=== PATIENT | male | born 1980 | race Two or more races ===

== ENCOUNTER 2018-10-21 15:33 | Emergency (ER) | payer MEDICAID, OTHER ==
[~2018-10-21] VITALS: Ht 167.6 cm; Wt 99.8 kg
[2018-10-21 16:47] VITALS: BP 133/88
[2018-10-21] MEDS ORDERED: KETOROLAC TROMETH 60MG/2ML VIAL IM ONE (17:30)
== END 2018-10-21 18:08 | disposition home or self-care (01) ==
LOC: ER 15:41
DX: M43.6 Torticollis (principal); M47.892 Other spondylosis, cervical region; M43.22 Fusion of spine, cervical region; E11.9 Type 2 diabetes mellitus without complications
CPT/HCPCS: 72040; 96372; 99283; J1885

== ENCOUNTER 2020-11-04 12:41 | Emergency (ER) | payer MEDICAID ==
[~2020-11-04] VITALS: Ht 152.4 cm; Wt 90.7 kg
[2020-11-04 13:06] VITALS: BP 152/100
[2020-11-04] MEDS ORDERED: KETOROLAC TROMETH 30 MG/ML 1ML VIAL IV ONE (14:15)
== END 2020-11-04 14:27 | disposition home or self-care (01) ==
LOC: EDBD 12:41 → ER 12:41
DX: S00.03XA Contusion of scalp, initial encounter (principal); E11.9 Type 2 diabetes mellitus without complications; V43.52XA Car driver injured in collision with other type car in traffic accident, initial encounter; Y93.89 Activity, other specified; Y92.488 Other paved roadways as the place of occurrence of the external cause; Y99.8 Other external cause status
CPT/HCPCS: 70450; 72125; 96374; 99285; J1885

== ENCOUNTER 2021-02-21 17:39 | Emergency (ER) | payer MEDICAID ==
[~2021-02-21] VITALS: Ht 167.6 cm; Wt 99.8 kg
[2021-02-21 17:50] VITALS: BP 135/93
[2021-02-21 20:25] LABS: Urine Bacteria NONE SEEN /hpf (None Seen); Urine Blood TRACE /uL (Negative); Urine Specific Gravity 1.028 (1.001-1.035); Urine WBC 14 /hpf (0 - 3); Urine WBC Clumps PRESENT /hpf (None Seen)
[2021-02-21] MEDS ORDERED: KETOROLAC TROMETH 60MG/2ML VIAL IM ONE (20:30)
[2021-02-21] MEDS ORDERED: BACLOFEN 10 MG TAB PO ONE (20:30)
== END 2021-02-21 21:44 | disposition home or self-care (01) ==
LOC: ER 17:39
DX: S23.41XA Sprain of ribs, initial encounter (principal); N39.0 Urinary tract infection, site not specified; J84.10 Pulmonary fibrosis, unspecified; E11.9 Type 2 diabetes mellitus without complications; X58.XXXA Exposure to other specified factors, initial encounter; Y93.89 Activity, other specified; Y92.89 Other specified places as the place of occurrence of the external cause; Y99.8 Other external cause status
CPT/HCPCS: 71101; 72100; 81001; 82962; 96372; 99284; J1885

== ENCOUNTER 2021-03-09 17:00 | Emergency (ER) | payer MEDICAID ==
[~2021-03-09] VITALS: Ht 167.6 cm; Wt 104.3 kg
[2021-03-09 17:09] VITALS: BP 142/85
== END 2021-03-09 19:49 | disposition left against medical advice (07) ==
LOC: ER 17:00
DX: M54.9 Dorsalgia, unspecified (principal); Z53.21 Procedure and treatment not carried out due to patient leaving prior to being seen by health care provider

== ENCOUNTER 2021-03-23 22:33 | Emergency (ER) | payer MEDICAID ==
[2021-03-24] MEDS ORDERED: KETOROLAC TROMETH 60MG/2ML VIAL IM ONE (05:45)
[2021-03-24 07:00] VITALS: BP 157/86
== END 2021-03-24 07:08 | disposition home or self-care (01) ==
LOC: ER 22:33
DX: R07.81 Pleurodynia (principal); E11.9 Type 2 diabetes mellitus without complications
CPT/HCPCS: 71250; 96372; 99284; J1885

== ENCOUNTER 2022-10-12 15:48 | Emergency (ER) | payer MEDICAID ==
[~2022-10-12] VITALS: Ht 167.6 cm; Wt 99.1 kg
[~2022-10-12 15:48] MED LIST changes: -CEPH250C28 PO; -CLIN1PAD EXT; -IBUP800T27 PO; -cefTRIAXone SOD 1,000 MG VL IM ONE
[2022-10-12] MEDS ORDERED: CLIN1PAD EXT (16:57)
[2022-10-12] MEDS ORDERED: IBUP800T27 PO (16:57)
[2022-10-12] MEDS ORDERED: CEPH250C28 PO (16:57)
[2022-10-12 17:14] VITALS: BP 137/74
== END 2022-10-12 17:15 | disposition home or self-care (01) ==
LOC: ER 15:48
DX: L02.01 Cutaneous abscess of face (principal); E11.9 Type 2 diabetes mellitus without complications; Z88.6 Allergy status to analgesic agent

== ENCOUNTER → 2022-10-12 | Emergency (ER) | payer MEDICAID ==
[~2022-10-12] VITALS: Ht 167.6 cm; Wt 100.0 kg
[~2022-10-12] MED LIST: CEPH-510 PO; CEPH250C28 PO; CLIN1PAD EXT; IBUP800T26 PO; IBUP800T27 PO; cefTRIAXone SOD 1,000 MG VL IM ONE
[2022-10-12 00:40] VITALS: BP 129/96
== END | disposition left against medical advice (07) ==
LOC: ER 00:08
DX: L02.01 Cutaneous abscess of face (principal); E11.9 Type 2 diabetes mellitus without complications
CPT/HCPCS: J0696

== ENCOUNTER 2023-01-24 19:07 | Emergency (ER) | payer MEDICAID ==
[~2023-01-24] VITALS: Ht 167.6 cm; Wt 103.1 kg
[~2023-01-24 19:07] MED LIST changes: +CEPH250C2 PO; +CLIN1PAD EXT; +IBUP-1455 PO; +IBUP-1456 PO; -IBUP800T26 PO
[2023-01-24 20:30] VITALS: BP 148/97
[2023-01-24] MEDS ORDERED: SULFAMETHOX W/TRIMETH(800/160MG) DS TAB PO ONE (20:45)
[2023-01-24] MEDS ORDERED: CLINDAMYCIN HCL 150 MG CAP PO ONE ×2 (20:45)
[2023-01-24] MEDS ORDERED: CLINDAMYCIN 900MG IV 50 ML IV ONE (20:45)
[2023-01-24] MEDS ORDERED: cefTRIAXone W LIDOCAINE 1 GM IM IM ONE (20:45)
[2023-01-24] MEDS ORDERED: CLIN300C70 PO (20:54)
[2023-01-24] MEDS ORDERED: IBU600T PO (20:54)
[2023-01-24] MEDS ORDERED: BACDST PO (20:54)
== END 2023-01-24 21:04 | disposition home or self-care (01) ==
LOC: ER 19:07
DX: L02.11 Cutaneous abscess of neck (principal); E11.9 Type 2 diabetes mellitus without complications; Z88.1 Allergy status to other antibiotic agents; Z88.6 Allergy status to analgesic agent
CPT/HCPCS: J0696

== ENCOUNTER 2023-05-31 10:52 | Emergency (ER) | payer MEDICAID ==
[~2023-05-31] VITALS: Ht 167.6 cm; Wt 107.3 kg
[~2023-05-31 10:52] MED LIST changes: +BACDST PO; +CLIN300C70 PO; +IBU600T PO
[2023-05-31 11:19] VITALS: BP 152/88; PULSE 98; RESP 16; TEMP 97.4; O2SAT 99
[2023-05-31] MEDS ORDERED: cefTRIAXone SOD 1,000 MG VL IM ONE (11:30)
[2023-05-31] MEDS ORDERED: CEPH500C PO (11:34)
[2023-05-31] MEDS ORDERED: IBUP-1456 PO (11:34)
== END 2023-05-31 11:52 | disposition home or self-care (01) ==
LOC: ER 10:52
DX: L73.9 Follicular disorder, unspecified (principal); E11.9 Type 2 diabetes mellitus without complications; Z79.1 Long term (current) use of non-steroidal anti-inflammatories (NSAID); Z79.899 Other long term (current) drug therapy
CPT/HCPCS: 96372; 99283; J0696

== ENCOUNTER 2024-02-19 00:52 | Emergency (ER) | payer MEDICAID ==
[~2024-02-19] VITALS: Ht 167.6 cm; Wt 104.3 kg
[~2024-02-19 00:52] MED LIST changes: +CEPH500C PO; +CLIN1CAP70 PO; -CLIN300C70 PO
[2024-02-19 01:07] VITALS: BP 108/62; PULSE 83; RESP 12; O2SAT 98
[2024-02-19] MEDS: TETRACAINE HCL 0.5% OPTH(EYE) SOLN 4ML EACHEYE ONE (04:19)
== END 2024-02-19 04:52 | disposition home or self-care (01) ==
LOC: ER 00:52
DX: H57.13 Ocular pain, bilateral (principal); R51.9 Headache, unspecified; E11.9 Type 2 diabetes mellitus without complications; E78.5 Hyperlipidemia, unspecified; I10 Essential (primary) hypertension
CPT/HCPCS: 70450; 70480

== ENCOUNTER 2024-12-15 17:30 | Emergency (ER) | payer SELFPAY, MEDICAID ==
[~2024-12-15] VITALS: Ht 167.6 cm; Wt 106.1 kg
--- NOTE | 2024-12-15 19:17 | ED.PDOC ---
History of Present Illness HPI Comments This is a 44-year-old male who comes in with chief complaint of bilateral leg swelling. The patient denies any nausea, vomiting or diarrhea. The patient states that he had a Whipple procedure done in October of this year. The surgery was done at [facility]. The patient states that he had to go back in the hospital approximately 1-1/2 months later to address an infection in his liver. The patient currently has a drain in the liver. He states that over the past couple of days his leg swelling has worsened. He was recently released from the hospital. The patient denies any chest pain or shortness for breath. There has been no nausea, vomiting or diarrhea. Chief Complaint: Extremity Swelling Time Seen by MD: 18:33 Primary Care Provider: BRADY Reviewed Notes: Nurses Notes, Medications, Allergies (No allergies to medications) Allergies: Coded Allergies: NO KNOWN ALLERGIES (Unverified , 10/21/18) Home Meds Active Scripts Ibuprofen (Ibuprofen) 800 Mg Tab, 1 TAB PO TID, #30 TAB Prov:SCOTT DAVID 05/31/23 Cephalexin Monohydrate (Cephalexin) 500 Mg Cap, 1 CAP PO QID, #32 CAP Prov:SCOTT DAVID PA 05/31/23 Ibuprofen Micronized (MOTRIN TABLET) 600 Mg Tb, 1 TAB PO TID PRN, #20 TAB as needed for pain with food Prov:TRUDI JOHNSON Q IT ASSISTANT 01/24/23 Sulfamethoxazole W/Trimethopri (Bactrim Ds Tablet) 1 Tab Tb, 1 TAB PO BID for 10 Days, #20 TAB Prov:TRUDI JOHNSON Q IT ASSISTANT 01/24/23 Clindamycin Hcl (Clindamycin Hcl) 300 Mg Cap, 1 CAP PO QID for 10 Days, #40 CAP Prov:VARGAS JOHNSONA Q IT ASSISTANT 01/24/23 Cephalexin Base (Cephalexin) 250 Mg Cap, 250 MG PO QID for 10 Days, #40 CAP Prov:JARED MORALES IT ASSISTANT 10/12/22 Ibuprofen (Ibuprofen) 800 Mg Tab, 1 TAB PO TID, #30 TAB Prov:JARED MORALES IT ASSISTANT 10/12/22 Clindamycin Phosphate (Topical (CLINDACIN-P) 1 % Pad, 1 % EXT DAILY for 14 Days, #14 PAD Prov:JARED MORALES IT ASSISTANT 10/12/22 Ibuprofen Micronized (Ibuprofen) 800 Mg Tab, 800 MG PO Q8HP PRN, #20 TAB Prov:PHYLICIA CORONA PAC 10/12/22 Cephalexin ( Keflex 500) 500 Mg Cap, 1 CAP PO QID for 7 Days, #28 CAP Prov:PHYLICIA CORONA PAC 10/12/22 Information Source: Patient, Relative Mode of Arrival: Ambulatory Severity: Moderate Timing: Days Duration: Since onset Prehospital treatment: None Associated signs and symptoms Bilateral leg swelling with generalized weakness Past Medical History PAST MEDICAL HISTORY: Cancer, DM, High Lipids, HTN Past Medical History (Other): Infected liver Surgical History (Other): Whipple procedure Family History Family History: Family hx of DM, Family hx of Cancer Social History Smoker: Non-Smoker Alcohol: Denies ETOH Use Drugs: Denies Drug Use Lives In: Home Constitutional: denies: chills, diaphoresis, fatigue, fever, malaise, sweats, weakness, others EENTM: denies: blurred vision, double vision, ear bleeding, ear discharge, ear drainage, ear pain, ear ringing, eye pain, eye redness, hearing loss, mouth pain, mouth swelling, nasal discharge, nose bleeding, nose congestion, nose pain, photophobia, tearing, throat pain, throat swelling, voice changes, others Respiratory: denies: cough, hemoptysis, orthopnea, SOB at rest, shortness of breath, SOB with excertion, stridor, wheezing, others Cardiovascular: denies: chest pain, dizzy spells, diaphoresis, Dyspnea on exertion, edema, irregular heart beat, left arm pain, lightheadedness, palpitations, PND, syncope, others Gastrointestinal: denies: abdomen distended, abdominal pain, blood streaked bowels, constipated, diarrhea, dysphagia, difficulty swallowing, hematemesis, melena, nausea, poor appetite, poor fluid intake, rectal bleeding, rectal pain, vomiting, others Genitourinary: reports: others (Drainage in place); denies: burning, dysuria, flank pain, frequency, hematuria, incontinence, penile discharge, penile sore, pain, testicle pain, testicle swelling, urgency Neurological: denies: dizziness, fainting, headache, left sided numbness, left sided weakness, numbness, paresthesia, pre-existing deficit, right sided numbness, right sided weakness, seizure, speech problems, tingling, tremors, weakness, others Musculoskeletal: reports: others (Bilateral leg swelling); denies: back pain, gout, joint pain, joint swelling, muscle pain, muscle stiffness, neck pain Integumetry: denies: bruises, change in color, change in hair/nails, dryness, laceration, lesions, lumps, rash, wounds, others Allergic/Immunocompromised: denies: Difficulty Healing, Frequent Infections, Hives, Itching, others Hematologic/Lymphatic: denies: anemia, blood clots, easy bleeding, easy bruising, swollen glands, others Endocrine: denies: excessive hunger, excessive sweating, excessive thirst, excessive urination, flushing, intolerance to cold, intolerance to heat, unexplained weight gain, unexplained weight loss, others Psychiatric: denies: anxiety, bipolar disorder, depression, hopeless, panic disorder, schizophrenia, sleepless, suicidal, others Physical Exam General Appearance: Moderate Distress HEENT: Pale [place]juntivae (L), Pale Conjuntivae (R), Pharynx Normal, TMs Normal Neck: Full Range of Motion, Non-Tender, Normal, Normal Inspection Respiratory: Chest Non-Tender, Lungs Clear, No Accessory Muscle Use, No Respiratory Distress, Normal Breath Sounds Cardiovascular: No Edema, No JVD, No Murmur, No Gallop, Normal Peripheral Pulses, Regular Rate/Rhythm Breast Exam: Deferred Gastrointestinal: No Pulsatile Mass, Normal Bowel Sounds, Soft, Tenderness, Other (Drain in place from previous procedure) Genitalia: Deferred Pelvic: Deferred Rectal: Deferred Extremities: No calf tenderness, Normal capillary refill, Pedal edema Musculoskeletal : Apperance: Normal Neurologic: Alert, ferris wheel attendant II-XII nml as Tested, Motor Weakness, Normal Affect, Normal Mood, No Sensory Deficits Cerebellar Function: Normal Reflexes: Normal Skin: Dry, Pallor, Warm Lymphatic: No Adenopathy Was a procedure done? Was a procedure done?: No Differential Dx Considerations may include: Abscess, CHF, pedal edema, electrolyte imbalance X-Ray, Labs, Meds, VS Vital Signs Date Time Temp Pulse Resp B/P (MAP) Pulse Ox O2 Delivery O2 Flow Rate FiO2 12/15/24 21:10 99.2 102 16 127/68 (87) 96 99.2 12/15/24 18:09 98.9 104 16 116/71 (86) 95 98.9 Lab Test 12/15/24 19:24 12/15/24 19:09 Range/Units Urine Color Yellow Yellow Urine Clarity Turbid H Clear Urine pH 5.5 5.0-9.0 Urine Specific [place] 1.026 1.001-1.035 Urine Protein 2+ H Negative Urine Ketones Negative Negative Urine Blood 1+ H Negative /uL Urine Nitrite Negative Negative Urine Bilirubin Negative Negative Urine Urobilinogen Normal Negative mg/dL Urine Leukocyte Esterase 3+ Negative /uL Urine RBC 15 0 - 3 /hpf Urine Microscopic WBC 73 H 0-3 /HPF Urine Squamous Epithelial Cells Mod <5 /hpf Urine Bacteria None seen None Seen /hpf Urine Hyaline Casts Few 0 - 2 /lpf Urine Granular Casts Few 0 /lpf Urine Mucus Few None Seen Urine Yeast (Budding) Occasional None Seen /hpf Urine Glucose Normal Normal mg/dL White Blood Count 8.1 4.4-10.8 10^3/uL Red Blood Count 2.72 L 4.5-5.90 10^6/uL Hemoglobin 7.7 L 13.5-17.5 g/dL Hematocrit 22.5 L 41.0-53.0 % Mean Corpuscular Volume 82.8 80.0-100.0 fL Mean Corpuscular Hemoglobin 28.4 28.0-32.0 pg Mean Corpuscular Hemoglobin Concent 34.3 32.0-36.0 g/dL Red Cell Distribution Width 16.5 H 11.8-14.3 % Platelet Count 678 H 140-450 10^3/uL Mean Platelet Volume 5.8 L 6.9-10.8 fL Neutrophils (%) (Auto) 57.3 37.0-80.0 % Lymphocytes (%) (Auto) 31.2 10.0-50.0 % Monocytes (%) (Auto) 8.1 0.0-12.0 % Eosinophils (%) (Auto) 2.2 0.0-7.0 % Basophils (%) (Auto) 1.2 0.0-2.0 % Neutrophils # (Auto) 4.6 1.6-8.6 10 ^3/uL Lymphocytes # (Auto) 2.5 0.4-5.4 10 ^3/uL Monocytes # (Auto) 0.7 0-1.3 10 ^3/uL Eosinophils # (Auto) 0.2 0-0.8 10 ^3/uL Basophils # (Auto) 0.1 0-0.2 10 ^3/uL Nucleated Red Blood Cells 0.0 % Sodium Level 136 136-145 mmol/L Potassium Level 3.5 3.5-5.1 mmol/L Chloride Level 106 98-107 mmol/L Carbon Dioxide Level 24 20-31 mmol/L Anion Gap 6 5-15 Blood Urea Nitrogen 10 9-23 mg/dL Creatinine 0.76 0.700-1.30 mg/dL Glomerular Filtration Rate Calc 114 >90 mL/min BUN/Creatinine Ratio 13.2 10.0-20.0 Serum Glucose 92 74-106 mg/dL Calcium Level 7.8 L 8.7-10.4 mg/dL B-Type Natriuretic Peptide 73.00 0-100 pg/mL IV Hep-Lock was established The patient's CBC came back and it shows a hemoglobin of 7.7 and hematocrit of 22.5 The urine test is positive for UTI The patient is being given Rocephin 1 g IV piggyback The chemistry panel is within normal limits We are typed and screen the patient and we will transfuse the patient with 1 unit of packed red blood cells. We are concerned that the patient may be bleeding after the Whipple's We are getting a CAT scan of the abdomen and pelvis with IV contrast to rule out any type of active bleed At this time, the patient will be signed out to Dr. Degroot Images Reviewed?: Images reviewed and evaluated by me Time of 1ST Reevaluation: 19:17 Reevaluation 1ST: Unchanged Patient Education/Counseling: Diagnosis, Treatment, Prognosis Family Education/Counseling: No Family Present Departure 1 Departure Time of Disposition: 22:01 Impression: Primary Impression: Severe anemia Additional Impressions: Pedal edema Status post surgery Disposition: 30 STILL A PATIENT Condition: Fair Critical Care Note Critical Care Time?: No Stability Stability form required: Yes Stable for transfer: Intended for transfer, To designated facility Heart Score Heart Score: Heart Score Response (Comments) Value History N/A 0 EKG N/A 0 Age N/A 0 Risk Factors N/A 0 Troponin N/A 0 Total 0 NATALIE NEWELL MD December 15, 2024 19:17
[2024-12-15 19:25] LABS: Basophils # (auto) 0.1 10 ^3/uL (0-0.2); Eosinophils # (auto) 0.2 10 ^3/uL (0-0.8); Hemoglobin 7.7 g/dL (13.5-17.5); Mean Corpuscular Volume 82.8 fL (80.0-100.0)
[2024-12-15 19:27] LABS: Anion Gap 6 (5-15); Basophils % (auto) 1.2 % (0.0-2.0); Carbon Dioxide 24 mmol/L (20-31); Chloride 106 mmol/L (98-107); Eosinophils % (auto) 2.2 % (0.0-7.0); Hematocrit 22.5 % (41.0-53.0); Lymphocytes # (auto) 2.5 10 ^3/uL (0.4-5.4); Lymphocytes % (auto) 31.2 % (10.0-50.0); Mean Corpuscular Hemoglobin 28.4 pg (28.0-32.0); Mean Corpuscular Hgb Conc. 34.3 g/dL (32.0-36.0); Monocytes # (auto) 0.7 10 ^3/uL (0-1.3); Monocytes % (auto) 8.1 % (0.0-12.0); Neutrophils # (auto) 4.6 10 ^3/uL (1.6-8.6); Neutrophils % (auto) 57.3 % (37.0-80.0); Platelet Count (auto) 678 10^3/uL (140-450); Potassium 3.5 mmol/L (3.5-5.1); Red Blood Cells 2.72 10^6/uL (4.5-5.90); Red Cell Distribution Width 16.5 % (11.8-14.3); White Blood Cell 8.1 10^3/uL (4.4-10.8)
[2024-12-15 19:33] LABS: BUN/Creatinine Ratio 13.2 (10.0-20.0); Blood Urea Nitrogen 10 mg/dL (9-23); Calcium 7.8 mg/dL (8.7-10.4); Glucose 92 mg/dL (74-106); Sodium 136 mmol/L (136-145)
--- NOTE | 2024-12-15 19:59 | DVH ---
XY CHEST TWO VIEWS ROUTINE CLINICAL HISTORY: sob COMPARISON: None TECHNIQUE: Frontal and lateral view of the chest was obtained FINDINGS: Lines and Tubes: None Lungs: Small right pleural effusion with atelectasis and airspace in the right base. Scarring or line ar atelectasis left base Pleura: No effusion. No pneumothorax. Cardiomediastinal contours: Unremarkable Bones: No acute osseous abnormality. IMPRESSION: 1. Airspace disease right lower lobe with a small pleural effusion and atelectasis. 2. Linear atelectasis or scarring left base
[2024-12-15 20:08] LABS: Urine Bacteria None Seen /hpf (None Seen); Urine Blood 1+ /uL (Negative); Urine Budding Yeast OCCASIONAL /hpf (None Seen); Urine Clarity Turbid (Clear); Urine Color Yellow (Yellow); Urine Hyaline Cast FEW /lpf (0 - 2); Urine Mucus FEW (None Seen); Urine Protein, UAD 2+ (Negative); Urine Specific Gravity 1.026 (1.001-1.035); Urine Squamous Epithelial Cell MOD /hpf (<5); Urine Urobilinogen Normal (Negative); Urine WBC 73 /HPF (0-3); Urine pH 5.5 (5.0-9.0)
[2024-12-15] MEDS ORDERED: cefTRIAXone 1GM/50ML D5W 50 ML IV ONE (20:30)
[2024-12-15 23:26] VITALS: BP 142/73; PULSE 102; RESP 16; TEMP 98.3; O2SAT 95
== END 2024-12-15 23:55 | disposition left against medical advice (07) ==
LOC: ER 17:30
DX: D64.9 Anemia, unspecified (principal); R60.0 Localized edema; E11.9 Type 2 diabetes mellitus without complications; I10 Essential (primary) hypertension; N39.0 Urinary tract infection, site not specified; K76.9 Liver disease, unspecified; E78.5 Hyperlipidemia, unspecified; Z79.1 Long term (current) use of non-steroidal anti-inflammatories (NSAID); Z90.49 Acquired absence of other specified parts of digestive tract; Z85.9 Personal history of malignant neoplasm, unspecified; Z98.890 Other specified postprocedural states
CPT/HCPCS: 36415; 71046; 80048; 81001; 83880; 85025; 86850; 86900; 86901; 86920

== ENCOUNTER 2025-01-06 17:40 | Emergency (ER) | payer MEDICAID, SELFPAY ==
[~2025-01-06] VITALS: Ht 167.6 cm; Wt 100.0 kg
--- NOTE | 2025-01-06 17:57 | ED.PDOC ---
General HPI Comments HPI Herbie 44 y.o male presents to the ED via EMS for a chief complaint of right flank pain x today. Patient reports recent kidney abscess IND procedure done with a JORGE A drain placed in, states he had a CT scan with IV contrast today and when he arrived home after, he started experiencing some pain in the surgical area on the right side. Patient initially had renal cancer with resection on October of 2024, a month later developed the kidney abscess and had an existing JORGE A drain. Patient reports drain is working and draining well with no bleeding, pus, or dislodgment noted. Patient also complains of nausea and chills that developed with the pain which is non radiating and constant. Patient is currently on antibiotics. Patine is currently on Amoxicillin, Levofloxacin and Dilaudid. Patient denies any allergies Vitals Temperature: 97.9 F Heart Rate: 99 Blood pressure: 162/95 SPO2: 97 RA RR:16 Past Medical History: HTN, DM, Renal cancer Past Surgical History: Kidney resection right side HPI: Poor Historian. REVIEW OF SYSTEMS: CONSTITUTIONAL: Denies acute: fever, diaphoresis, HEAD: Denies acute: headache, photophobia Eyes: Denies acute: Double vision, vision loss, eye pain, eye discharge. EARS: Denies acute: tinnitus, hearing loss, ear discharge, ear pain, THROAT: Denies acute: sore throat, swelling, difficulty swallowing , pain with swallowing, change in voice. NECK: Denies acute: neck pain, neck swelling, stiff neck. HEART: Denies acute : chest pain, palpitations, LUNGS: Denies acute: SOB, wheezing, cough, hemoptysis ABDOMEN: Denies acute: Vomiting, diarrhea, melena , hematemesis, hematochezia SKIN: Denies acute: rash, redness, lesions, itchiness. EXTREMITIES: Denies acute: calf pain, numbness, tingling, weakness, denies pain in extremity. Denies acute: Low back pain. Neuro: Denies acute: focal neurological deficit, motor or sensory focal neurological deficit, tremors, seizure like activity, confusion, dizziness, change in mental status, loss of bowel or bladder function, cauda equina like symptoms. : Denies acute: dysuria, hematuria, increase in urinary frequency. PSYCH: Denies acute: hallucination, suicidal ideation, homicidal ideation. PHYSICAL EXAM: General: ----[id number]----acute distress, awake and alert. Head: normocephalic, atraumatic. Neck: supple, trachea is midline, no swelling. Throat: Normal phonation. Eyes:, no erythema, no purulent discharge, no proptosis, no icterus. Heart: regular rate, regular rhythm, no significant murmur appreciated. Lungs: no apparent respiratory distress, Able to speak in full sentences. No wheezing, no rhonchi, no crackles. No stridors Clear to auscultation bilaterally. Abdomen: Right-sided surgical site JORGE A drain site mild tender to palpation, non distended, soft, no guarding, no rebound, + bowel sounds. JORGE A drain is noted with normal color drainage. Neuro: Awake, Alert, oriented to name, self, situation, follows commands GCS=15. Speech is normal. Skin: no petechia, no purpura, no cyanosis, non-pale, not jaundice. Lower extremities: --no - Pitting edema no deformity, no focal swelling, no calf TTP. Makes eye contact. moves all four extremities. Face: no apparent facial droop. Ambulating in the ED independently. ED COURSE: Chief Complaint: Flank Pain Time Seen by MD: 17:45 Primary Care Provider: UNKNOWN Reviewed notes: [employer] Notes, Allergies Allergies: Coded Allergies: NO KNOWN ALLERGIES (Unverified , 10/21/18) Home Meds Active Scripts Ibuprofen (Ibuprofen) 800 Mg Tab, 1 TAB PO TID, #30 TAB Prov:SCOTT DAVID 05/31/23 Cephalexin Monohydrate (Cephalexin) 500 Mg Cap, 1 CAP PO QID, #32 CAP Prov:SCOTT DAVID 05/31/23 Ibuprofen Micronized (MOTRIN TABLET) 600 Mg Tb, 1 TAB PO TID PRN, #20 TAB as needed for pain with food Prov:TRUDI JOHNSON [employer]ENT[employer] 01/24/23 Sulfamethoxazole W/Trimethopri (Bactrim Ds Tablet) 1 Tab Tb, 1 TAB PO BID for 10 Days, #20 TAB Prov:TRUDI JOHNSON [employer] 01/24/23 Clindamycin Hcl (Clindamycin Hcl) 300 Mg Cap, 1 CAP PO QID for 10 Days, #40 CAP Prov:TRUDI JOHNSON [employer] 01/24/23 Cephalexin Base (Cephalexin) 250 Mg Cap, 250 MG PO QID for 10 Days, #40 CAP Prov:JARED MORALES Humphrey [employer] 10/12/22 Ibuprofen (Ibuprofen) 800 Mg Tab, 1 TAB PO TID, #30 TAB Prov:CARMENJARED C [employer] 10/12/22 Clindamycin Phosphate (Topical (CLINDACIN-P) 1 % Pad, 1 % EXT DAILY for 14 Days, #14 PAD Prov:MARGARET MORALESRACHAEL Yin [employer] 10/12/22 Ibuprofen Micronized (Ibuprofen) 800 Mg Tab, 800 MG PO Q8HP PRN, #20 TAB Prov:PHYLICIA CORONA PAC 10/12/22 Cephalexin ( Keflex 500) 500 Mg Cap, 1 CAP PO QID for 7 Days, #28 CAP Prov:PHYLICIA CORONA PAC 10/12/22 Information Source: Patient, Emergency Med Personnel Mode of Arrival: EMS Past Medical History PAST MEDICAL HISTORY: Cancer, DM, High Lipids, HTN Surgical History (Other): GP drain Family History Family History: Family hx of DM, Family hx of Cancer Social History Smoker: Non-Smoker Alcohol: Denies ETOH Use Drugs: Denies Drug Use Lives In: Home Was a procedure done? Was a procedure done?: No Differential Diagnosis Kidney stone (Female): N/A Kidney stone (Male): Bowel obstruction, DJD, Cholangitis, Pancreatitis, Pyelonephritis, Strain, Urinary obstruction, Urinary tract infection, Other (DDX include but not limited to diverticulitis, colitis, gastroenteritis, acute abdomen, SBO, enteritis, constipation, volvulus, appendicitis, Gallbladder disease, choledocolithiasis, ascending cholangitis, pancreatitis, intraAbdominal mass/neoplasm, hepatitis, UTI, pylonephritis, kidney stone, aneurysm, dissection, Inflammatory bowel disease, gastroparesis, ischemic bowel.) X-Ray, Labs, Meds, VS Vital Signs Date Time Temp Pulse Resp B/P (MAP) Pulse Ox O2 Delivery O2 Flow Rate FiO2 01/06/25 21:03 98.0 92 16 124/80 (95) 95 98.0 01/06/25 18:58 142/85 01/06/25 18:33 97.4 102 19 142/85 (104) 97 97.4 01/06/25 18:33 102 19 97 Room Air 01/06/25 17:47 97.9 99 16 162/95 (117) 97 97.9 Lab Test 01/06/25 20:31 01/06/25 18:10 01/06/25 18:09 01/06/25 18:06 Range/Units Lactic Acid Level 1.7 2.2 *H 0.4-2.0 mmol/L White Blood Count 8.1 4.4-10.8 10^3/uL Red Blood Count 3.42 L 4.5-5.90 10^6/uL Hemoglobin 9.8 L 13.5-17.5 g/dL Hematocrit 29.1 L 41.0-53.0 % Mean Corpuscular Volume 85.1 80.0-100.0 fL Mean Corpuscular Hemoglobin 28.7 28.0-32.0 pg Mean Corpuscular Hemoglobin Concent 33.7 32.0-36.0 g/dL Red Cell Distribution Width 18.4 H 11.8-14.3 % Platelet Count 484 H 140-450 10^3/uL Mean Platelet Volume 7.1 6.9-10.8 fL Neutrophils (%) (Auto) 56.6 37.0-80.0 % Lymphocytes (%) (Auto) 34.6 10.0-50.0 % Monocytes (%) (Auto) 6.7 0.0-12.0 % Eosinophils (%) (Auto) 1.9 0.0-7.0 % Basophils (%) (Auto) 0.2 0.0-2.0 % Neutrophils # (Auto) 4.6 1.6-8.6 10 ^3/uL Lymphocytes # (Auto) 2.8 0.4-5.4 10 ^3/uL Monocytes # (Auto) 0.5 0-1.3 10 ^3/uL Eosinophils # (Auto) 0.2 0-0.8 10 ^3/uL Basophils # (Auto) 0 0-0.2 10 ^3/uL Nucleated Red Blood Cells 0.0 % Sodium Level 136 136-145 mmol/L Potassium Level 4.6 3.5-5.1 mmol/L Chloride Level 105 98-107 mmol/L Carbon Dioxide Level 23 20-31 mmol/L Anion Gap 8 5-15 Blood Urea Nitrogen 12 9-23 mg/dL Creatinine 1.00 0.700-1.30 mg/dL Glomerular Filtration Rate Calc 96 >90 mL/min BUN/Creatinine Ratio 12.0 10.0-20.0 Serum Glucose 348 H 74-106 mg/dL Calcium Level 8.5 L 8.7-10.4 mg/dL Total Bilirubin 0.2 0.2-1.0 mg/dL Aspartate Amino Transferase (AST) 15 13-40 U/L Alanine Aminotransferase (ALT) 13 7-40 U/L Alkaline Phosphatase 212 H 46-116 U/L Troponin I High Sensitivity 12 </=54 ng/L B-Type Natriuretic Peptide 117.28 0-100 pg/mL Total Protein 7.3 5.7-8.2 g/dL Albumin 3.1 L 3.2-4.8 g/dL Lipase 26 12-53 U/L Urine Color Light-yellow Yellow Urine Clarity Clear Clear Urine pH 6.5 5.0-9.0 Urine Specific [place] 1.044 H 1.001-1.035 Urine Protein 2+ H Negative Urine Ketones Negative Negative Urine Blood Trace H Negative /uL Urine Nitrite Negative Negative Urine Bilirubin Negative Negative Urine Urobilinogen Normal Negative mg/dL Urine Leukocyte Esterase Negative Negative /uL Urine RBC 4 0 - 3 /hpf Urine Microscopic WBC 2 0-3 /HPF Urine Squamous Epithelial Cells Few <5 /hpf Urine Bacteria None seen None Seen /hpf Urine Glucose 2+ H Normal mg/dL Current Medications Medications (Trade) Dose Ordered Sig/Nilay Route Start Time Stop Time Status Last Admin Sodium Chloride 1,000 ml @ 1,000 mls/hr Q1H ONCE IV 01/06/25 18:15 01/06/25 19:14 DC 01/06/25 18:46 Fentanyl Citrate 100 mcg ONCE ONCE IV 01/06/25 18:45 01/06/25 18:46 DC 01/06/25 18:58 Ondansetron HCl (Zofran) 4 mg ONCE ONCE IV 01/06/25 18:45 01/06/25 18:46 DC 01/06/25 18:58 [facility] [id number] [place] [id number] Ph: [phone] DIAGNOSTIC IMAGING Diagnostic Imaging Report : [id number] Signed [id number] UN[facility]: [id number] : 1980 LOC: ER ROOM / BED: / AGE / SEX: 44 / M ADM STATUS: REG ER SERVICE [id number] ORDERING PHYSICIAN: ABEBA MERRILL DO PROCEDURE(s): ABPL - CT AB PEL WO CON-NO ORAL OR IV REASON: POST OP RENAL CANCER RESECTION THEN ABSCESS JORGE A DRAIN. ORDER NUMBER(s): [id number], ACCESSION NUMBER(s): [id number] Exam: CT CT AB PEL WO CON-NO ORAL OR IV History: POST OP RENAL CANCER RESECTION THEN ABSCESS JORGE A DRAIN. Comparison Study: None TECHNIQUE: Multidetector CT of the abdomen and pelvis was performed from lung bases to pubic symphysis. Imaging was performed without IV contrast. Axial, coronal, and sagittal multiplanar reformats were obtained from the axial data set by the technologist. RADIATION DOSE: DLP 1203.83 mGy.cm; CTDI vol 20.03 mGy. Findings: Limited evaluation given noncontrast technique. Lungs: The lung bases are clear. Heart: No cardiomegaly or pericardial effusion. Liver: Percutaneous pigtail catheter in the right hepatic lobe with mild portal venous gas.. Gallbladder: Unremarkable. Spleen: Unremarkable Pancreas: Postsurgical changes of the pancreas. Adrenals: Unremarkable Kidneys: Unremarkable GI tract: Postsurgical changes of the stomach and duodenum. : Unremarkable. Vasculature: Unremarkable Lymphadenopathy: Absent Peritoneum: No ascites Musculoskeletal: Unremarkable Soft tissues: Mild anasarca. Small fat containing left inguinal hernia. Impression: 1. Limited evaluation given noncontrast technique. 2. No definite acute abdominopelvic abnormalities. 3. Percutaneous pigtail catheter in the right hepatic lobe with mild portal venous gas favored post procedural changes. 4. Mild anasarca. ATED BY: VERONICA RENE DO DICTATED DATE/TIME: 01/06/251951 SIGNED BY: VERONICA RENE DO SIGNED DATE/TIME: 01/06/251951 CC: Time of 1ST Reevaluation: 17:51 Reevaluation 1ST: Unchanged Time of 2ND Reevaluation: 00:00 Reevaluation 2ND: Improved Patient Education/Counseling: Diagnosis, Treatment Family Education/Counseling: No Family Present Comments Patient presented with the above HPI.---right-sided abdominal surgical site pain---workup was initiated. patient was found with the above mentioned diagnosis. the following medications were ordered: please refer to order lists of meds and tests obtained by myself Dr. Merrill. Patient ED course and VS have been stabilized. Patient has been reassessed in the ED and remained in a stable condition. Pertinent incidental findings were discussed with the patient and/or family. Patient/family voices understanding and is agreeable with plan. Patient has been observed in the ED adequate length of time to insure improvement/stability. Escalation of care considered: Consideration of escalation to observation or admission Patient was DISCHARGED home in a stable condition. All the reports of any imaging studies that were ordered by myself were reviewed by myself. Departure 1 Departure Time of Disposition: 20:34 Impression: Primary Impression: Abdominal pain Additional Impression: Anemia Disposition: 01 HOME / SELF CARE / HOMELESS Condition: Stable Additional Instructions: Additional instructions: You MUST follow-up with your primary care/family doctor in 1 to 2 days. If you are unable to see your primary care/family doctor, please return to our emergency room for re-assessment and re-evaluation in 1 to 2 days. Return to the emergency room here in our facility or to the nearest ER [facility] if your symptoms change or worsen. CONSULTATIONS: you MUST Follow-up for consultation as soon as possible with: Dr.-Loma Bobby specialists and surgeons in 1-2 days. Please call for appointm ent. You MUST call the consultants office yourself to make an appointment. You may need to arrange that through your insurance and/or your primary/family doctor. If you are unable to see the corporate travel consultant in 1 to 2 days, you must return to our emergency room (or any other ER of your choice) for re-assessment and re- evaluation. Adequate fluid hydration. Take daily iron supplements because you are anemic. Repeat CBC levels in 48-72 hours. Below is a copy of your radiological report for follow up: [address] [address] Ph: [phone] DIAGNOSTIC IMAGING Diagnostic Imaging Report : [id number] Signed PATIENT: KRUPA HAIDER ACCT: [id number] UNIT: [id number] : 1980 LOC: ER ROOM / BED: / AGE / SEX: 44 / M ADM STATUS: REG ER SERVICE [id number] ORDERING PHYSICIAN: ABEBA MERRILL DO PROCEDURE(s): ABPL - CT AB PEL WO CON-NO ORAL OR IV REASON: POST OP RENAL CANCER RESECTION THEN ABSCESS JORGE A DRAIN. ORDER NUMBER(s): [id number], ACCESSION NUMBER(s): [id number] Exam: CT CT AB PEL WO CON-NO ORAL OR IV History: POST OP RENAL CANCER RESECTION THEN ABSCESS JORGE A DRAIN. Comparison Study: None TECHNIQUE: Multidetector CT of the abdomen and pelvis was performed from lung bases to pubic symphysis. Imaging was performed without IV contrast. Axial, coronal, and sagittal multiplanar reformats were obtained from the axial data set by the technologist. RADIATION DOSE: DLP 1203.83 mGy.cm; CTDI vol 20.03 mGy. Findings: Limited evaluation given noncontrast technique. Lungs: The lung bases are clear. Heart: No cardiomegaly or pericardial effusion. Liver: Percutaneous pigtail catheter in the right hepatic lobe with mild portal venous gas.. Gallbladder: Unremarkable. Spleen: Unremarkable Pancreas: Postsurgical changes of the pancreas. Adrenals: Unremarkable Kidneys: Unremarkable GI tract: Postsurgical changes of the stomach and duodenum. : Unremarkable. Vasculature: Unremarkable Lymphadenopathy: Absent Peritoneum: No ascites Musculoskeletal: Unremarkable Soft tissues: Mild anasarca. Small fat containing left inguinal hernia. Impression: 1. Limited evaluation given noncontrast technique. 2. No definite acute abdominopelvic abnormalities. 3. Percutaneous pigtail catheter in the right hepatic lobe with mild portal venous gas favored post procedural changes. 4. Mild anasarca. ATED BY: VERONICA RENE DO DICTATED DATE/TIME: 01/06/251951 SIGNED BY: VERONICA RENE DO SIGNED DATE/TIME: 01/06/251951 CC: Discharged With: Self Critical Care Note Critical Care Time?: No I personally scribed for ABEBA MERRILL DO ([email or web address]) on 01/06/25 at 17:57. Electronically submitted by Cee Vann ([facility]). I personally scribed for ABEBA MERRILL DO ([email or web address]) on 01/06/25 at 18:19. Electronically submitted by Cee Vann ([email or web address]). I personally scribed for ABEBA MERRILL DO ([email or web address]) on 01/06/25 at 21:19. Electronically submitted by Moi Castillo ([email or web address]). ABEBA MERRILL DO Jan 06, 2025 17:57
[2025-01-06 18:31] LABS: Basophils # (auto) 0 10 ^3/uL (0-0.2); Eosinophils # (auto) 0.2 10 ^3/uL (0-0.8); Lymphocytes # (auto) 2.8 10 ^3/uL (0.4-5.4); Monocytes # (auto) 0.5 10 ^3/uL (0-1.3); Neutrophils # (auto) 4.6 10 ^3/uL (1.6-8.6); Neutrophils % (auto) 56.6 % (37.0-80.0); Red Cell Distribution Width 18.4 % (11.8-14.3); White Blood Cell 8.1 10^3/uL (4.4-10.8)
[2025-01-06 18:32] LABS: Basophils % (auto) 0.2 % (0.0-2.0); Eosinophils % (auto) 1.9 % (0.0-7.0); Hematocrit 29.1 % (41.0-53.0); Hemoglobin 9.8 g/dL (13.5-17.5); Lymphocytes % (auto) 34.6 % (10.0-50.0); Mean Corpuscular Hemoglobin 28.7 pg (28.0-32.0); Mean Corpuscular Hgb Conc. 33.7 g/dL (32.0-36.0); Mean Corpuscular Volume 85.1 fL (80.0-100.0); Monocytes % (auto) 6.7 % (0.0-12.0); Platelet Count (auto) 484 10^3/uL (140-450); Red Blood Cells 3.42 10^6/uL (4.5-5.90)
[2025-01-06 18:45] LABS: Urine Bacteria None Seen /hpf (None Seen)
[2025-01-06] MEDS: SODIUM CHLORIDE 0.9% 1,000 ML IV ONE (18:46)
[2025-01-06 18:49] LABS: Alanine Aminotransferase 13 U/L (7-40); Anion Gap 8 (5-15); Aspartate Aminotransferase 15 U/L (13-40); Blood Urea Nitrogen 12 mg/dL (9-23); Carbon Dioxide 23 mmol/L (20-31); Chloride 105 mmol/L (98-107); Lipase 26 U/L (12-53); Potassium 4.6 mmol/L (3.5-5.1); Total Protein 7.3 g/dL (5.7-8.2)
[2025-01-06 18:50] LABS: Urine Blood TRACE /uL (Negative); Urine Clarity Clear (Clear); Urine Color Light-Yellow (Yellow); Urine Protein, UAD 2+ (Negative); Urine Specific Gravity 1.044 (1.001-1.035); Urine Squamous Epithelial Cell FEW /hpf (<5); Urine Urobilinogen Normal (Negative); Urine WBC 2 /HPF (0-3); Urine pH 6.5 (5.0-9.0)
[2025-01-06 18:57] LABS: Albumin 3.1 g/dL (3.2-4.8); Alkaline Phosphatase 212 U/L (46-116); Bilirubin, Total 0.2 mg/dL (0.2-1.0); Calcium 8.5 mg/dL (8.7-10.4); Glucose 348 mg/dL (74-106); Sodium 136 mmol/L (136-145)
[2025-01-06] MEDS: fentaNYL CITRATE 100 MCG/2 ML VL IV ONE (18:58)
[2025-01-06] MEDS: ONDANSETRON HCL 4 MG/2 ML VIAL IV ONE (18:58)
[2025-01-06 19:01] LABS: Lactic Acid w/Reflex 2.2 mmol/L (0.4-2.0)
--- NOTE | 2025-01-06 19:55 | DVH ---
Exam: CT CT AB PEL WO CON-NO ORAL OR IV History: POST OP RENAL CANCER RESECTION THEN ABSCESS JORGE A DRAIN. Comparison Study: None TECHNIQUE: Multidetector CT of the abdomen and pelvis was performed from lung bases to pubic symphysi s. Imaging was performed without IV contrast. Axial, coronal, and sagittal multiplanar reformats were obtained from the axial data set by the technologist. RADIATION DOSE: DLP 1203.83 mGy.cm; CTDI vol 20.03 mGy. Findings: Limited evaluation given noncontrast technique. Lungs: The lung bases are clear. Heart: No cardiomegaly or pericardial effusion. Liver: Percutaneous pigtail catheter in the right hepatic lobe with mild portal venous gas.. Gallbladder: Unremarkable. Spleen: Unremarkable Pancreas: Postsurgical changes of the pancreas. Adrenals: Unremarkable Kidneys: Unremarkable GI tract: Postsurgical changes of the stomach and duodenum. : Unremarkable. Vasculature: Unremarkable Lymphadenopathy: Absent Peritoneum: No ascites Musculoskeletal: Unremarkable Soft tissues: Mild anasarca. Small fat containing left inguinal hernia. Impression: 1. Limited evaluation given noncontrast technique. 2. No definite acute abdominopelvic abnormalities. 3. Percutaneous pigtail catheter in the right hepatic lobe with mild portal venous gas favored post p rocedural changes. 4. Mild anasarca.
[2025-01-06 21:03] VITALS: BP 124/80; PULSE 92; RESP 16; TEMP 98; O2SAT 95
== END 2025-01-06 22:57 | disposition home or self-care (01) ==
LOC: EDBD 17:40 → ER 17:45
DX: D64.9 Anemia, unspecified (principal); R10.9 Unspecified abdominal pain; I10 Essential (primary) hypertension; E11.9 Type 2 diabetes mellitus without complications; E78.5 Hyperlipidemia, unspecified; C64.9 Malignant neoplasm of unspecified kidney, except renal pelvis; R06.02 Shortness of breath; Z46.82 Encounter for fitting and adjustment of non-vascular catheter; Z79.899 Other long term (current) drug therapy; Z98.890 Other specified postprocedural states
CPT/HCPCS: 36415; 74176; 80053; 81001; 83605; 83690; 83880; 84484; 85025; 96361; 96374; 96375; 99285; J2405; J3010; J7030

== ENCOUNTER 2025-07-17 16:22 | Emergency (ER) | payer MEDICAID ==
[~2025-07-17] VITALS: Ht 167.6 cm; Wt 98.9 kg
[2025-07-17 16:24] VITALS: BP 162/98; PULSE 89; RESP 18; TEMP 97.4; O2SAT 96
--- NOTE | 2025-07-17 17:51 | ED.PDOC ---
History of Present Illness(SKN HPI Comments 44 y/o M, presents to the ED for CC of neck pain. Patient states, he has a reappearing cyst to the nape of his neck [id number]. Patient reports, to have received antibiotics for symptoms however, upon completion of antibiotics cyst reappeared. Patient relays, pain when moving his head from side to side and while sleeping. Patient denies pruritus, fever, or chills. Chief Complaint: Neck Pain Time Seen by MD: 17:15 Primary Care Provider: UNKNOWN History of Present Illness: Nurses Notes, Medications, Allergies Allergies: Coded Allergies: NO KNOWN ALLERGIES (Unverified , 10/21/18) Home Meds Active Scripts Ibuprofen (Ibuprofen) 800 Mg Tab, 1 TAB PO TID, #30 TAB Prov:SCOTT DAVID 05/31/23 Cephalexin Monohydrate (Cephalexin) 500 Mg Cap, 1 CAP PO QID, #32 CAP Prov:SCOTT DAVID PA 05/31/23 Ibuprofen Micronized (MOTRIN TABLET) 600 Mg Tb, 1 TAB PO TID PRN, #20 TAB as needed for pain with food Prov:TRUDI JOHNSON Q [employer] 01/24/23 Sulfamethoxazole W/Trimethopri (Bactrim Ds Tablet) 1 Tab Tb, 1 TAB PO BID for 10 Days, #20 TAB Prov:TRUDI JOHNSON [employer] 01/24/23 Clindamycin Hcl (Clindamycin Hcl) 300 Mg Cap, 1 CAP PO QID for 10 Days, #40 CAP Prov:VARGAS JOHNSONA Q [employer] 01/24/23 Cephalexin Base (Cephalexin) 250 Mg Cap, 250 MG PO QID for 10 Days, #40 CAP Prov:JARED MORALES [employer] 10/12/22 Ibuprofen (Ibuprofen) 800 Mg Tab, 1 TAB PO TID, #30 TAB Prov:JARED MORALES [employer] 10/12/22 Clindamycin Phosphate (Topical (CLINDACIN-P) 1 % Pad, 1 % EXT DAILY for 14 Days, #14 PAD Prov:JARED MORALES [employer] 10/12/22 Ibuprofen Micronized (Ibuprofen) 800 Mg Tab, 800 MG PO Q8HP PRN, #20 TAB Prov:PHYLICIA CORONA PAC 10/12/22 Cephalexin ( Keflex 500) 500 Mg Cap, 1 CAP PO QID for 7 Days, #28 CAP Prov:PHYLICIA CORONA PAC 10/12/22 Information Source: Patient Mode of Arrival: Ambulatory Severity: Moderate Timing: Weeks Duration: Since onset Prehospital treatment: None Location: Neck Mechanism: Spontaneous Onset Object: None Condition of Object: None Wound Type: None History of: None Associated Signs and Symptoms: None Past Medical History PAST MEDICAL HISTORY: Cancer, DM, High Lipids, HTN Family History Family History: Family hx of DM, Family hx of Cancer Social History Smoker: Non-Smoker Alcohol: Denies ETOH Use Drugs: Denies Drug Use Lives In: Home Constitutional: denies: chills, diaphoresis, fatigue, fever, malaise, sweats, w eakness, others EENTM: denies: blurred vision, double vision, ear bleeding, ear discharge, ear drainage, ear pain, ear ringing, eye pain, eye redness, hearing loss, mouth pain, mouth swelling, nasal discharge, nose bleeding, nose congestion, nose pain, photophobia, tearing, throat pain, throat swelling, voice changes, others Respiratory: denies: cough, hemoptysis, orthopnea, SOB at rest, shortness of breath, SOB with excertion, stridor, wheezing, others Cardiovascular: denies: chest pain, dizzy spells, diaphoresis, Dyspnea on exertion, edema, irregular heart beat, left arm pain, lightheadedness, palpitations, PND, syncope, others Gastrointestinal: denies: abdomen distended, abdominal pain, blood streaked bowels, constipated, diarrhea, dysphagia, difficulty swallowing, hematemesis, melena, nausea, poor appetite, poor fluid intake, rectal bleeding, rectal pain, vomiting, others Genitourinary: denies: burning, dysuria, flank pain, frequency, hematuria, incontinence, penile discharge, penile sore, pain, testicle pain, testicle swe lling, urgency, others Neurological: denies: dizziness, fainting, headache, left sided numbness, left sided weakness, numbness, paresthesia, pre-existing deficit, right sided numbness, right sided weakness, seizure, speech problems, tingling, tremors, weakness, others Musculoskeletal: reports: neck pain; denies: back pain, gout, joint pain, joint swelling, muscle pain, muscle stiffness, others Integumetry: denies: bruises, change in color, change in hair/nails, dryness, laceration, lesions, lumps, rash, wounds, others Allergic/Immunocompromised: denies: Difficulty Healing, Frequent Infections, Hives, Itching, others Hematologic/Lymphatic: denies: anemia, blood clots, easy bleeding, easy bruising, swollen glands, others Endocrine: denies: excessive hunger, excessive sweating, excessive thirst, excessive urination, flushing, intolerance to cold, intolerance to heat, unexplained weight gain, unexplained weight loss, others Psychiatric: denies: anxiety, bipolar disorder, depression, hopeless, panic disorder, schizophrenia, sleepless, suicidal, others All Other Systems: Reviewed and Negative Physical Exam General Appearance: No Apparent Distress, Normal HEENT: Normal ENT Inspection, Pharynx Normal Neck: Full Range of Motion, Non-Tender, Normal, Normal Inspection Respiratory: Chest Non-Tender, Lungs Clear, No Accessory Muscle Use, No Respiratory Distress, Normal Breath Sounds Cardiovascular: No Edema, No Murmur, No Gallop, Normal Peripheral Pulses, Regular Rate/Rhythm Breast Exam: Deferred Gastrointestinal: No Organomegaly, Non Tender, No Pulsatile Mass, Normal Bowel Sounds, Soft Genitalia: Deferred Pelvic: Deferred Rectal: Deferred Extremities: No calf tenderness, Normal capillary refill, Normal inspection, Normal range of motion, Non-tender, No pedal edema Musculoskeletal : Apperance: Normal Neurologic: Alert, kettle operator II-XII nml as Tested, No Motor Deficits, Normal Affect, Normal Mood, No Sensory Deficits Cerebellar Function: Normal Reflexes: Normal Skin: Dry, Normal Color, Warm, Other (cyst to nape of neck) Lymphatic: No Adenopathy Was a procedure done? Was a procedure done?: No Differential Diagnosis (INTG) Differential Diagnosis: Other (epidermode cyst ) X-Ray, Labs, Meds, VS Vital Signs Date Time Temp Pulse Resp B/P (MAP) Pulse Ox O2 Delivery O2 Flow Rate FiO2 07/17/25 16:24 97.4 89 18 162/98 96 97.4 Time of 1ST Reevaluation: 17:45 Reevaluation 1ST: Unchanged Patient Education/Counseling: Diagnosis, Treatment Family Education/Counseling: No Family Present SEPSIS Sepsis Screen Date sepsis recognized/suspect: Jul 17, 2025 Time Sepsis recognized/suspect: 1627 Recent Procedure: No On Antibiotic Therapy: No Respiratory Rate >20: No Heart Rate >90: No Temp<36 C (96.8 F) or >38.3 C: No SBP <90 or MAP <65 mmHG: No New Acute Mental Status Change: No Is the patient on CPAP, BIPAP,: No Vital Signs Date Time Temp Pulse Resp B/P (MAP) Pulse Ox O2 Delivery O2 Flow Rate FiO2 07/17/25 16:24 97.4 89 18 162/98 96 97.4 Departure 1 Departure Time of Disposition: 19:16 (Patient likely with a deeper abscess on his neck. We will try patient on antibiotics and discharge patient with surgical follow up.) Impression: Primary Impression: Cellulitis and abscess of head Disposition: HOME / SELF CARE / HOMELESS Condition: Stable Referrals: JOHN CUNNINGHAM MD Additional Instructions: You were referred to General surgery please call for an appointment. You were given antibiotics. Please take as directed. For pain you can take the followinam: Ibuprofen 400mg with food Noon: Acetaminophen 1000mg 4pm: Ibuprofen 400mg with food 8pm: Acetaminophen 1000mg You can use a lidocaine patch on your back before going to sleep. You should follow up with your regular doctor within one week to ensure you are doing better. If your symptoms worsen or you have any other concerns then please return to the ER. e-Prescriptions Sulfamethoxazole W/Trimethopri (Bactrim Ds Tablet) 1 Tab Tb 1 TAB PO BID for 7 Days, #14 TAB Prov: DION GARCIA MD 07/17/25 Discharged With: Self Critical Care Note Critical Care Time?: No Stability Stability form required: No Heart Score Heart Score: Heart Score Response (Comments) Value History N/A 0 EKG N/A 0 Age N/A 0 Risk Factors N/A 0 Troponin N/A 0 Total 0 I personally scribed for DION GARCIA MD ([email or web address]) on 07/17/25 at 17:51. Electronically submitted by Aylin Nelson ([email or web address]). DION GARCIA MD Jul 17, 2025 17:51
[2025-07-17] MEDS ORDERED: BACDST PO (19:19)
[2025-07-17] MEDS ORDERED: SULFAMETHOX W/TRIMETH(800/160MG) DS TAB PO ONE (19:30)
== END 2025-07-17 20:49 | disposition home or self-care (01) ==
LOC: ER 16:22
DX: L02.811 Cutaneous abscess of head [any part, except face] (principal); E11.9 Type 2 diabetes mellitus without complications; I10 Essential (primary) hypertension; Z79.899 Other long term (current) drug therapy